=== PATIENT | male | born 2000 | race Hispanic/Latino ===

== ENCOUNTER 2024-08-01 13:03 | Emergency (ER) | payer SELFPAY ==
[2024-08-01 13:08] VITALS: BP 139/77
[2024-08-01 13:23] LABS: % Basophils 0.3 % (0-2); % Eosinophils 1.1 % (0-6); % Immature Granulocytes 0.3 % (0-0.5); % Lymphocytes 19.5 % (20.5-51.1); % Monocytes 6.1 % (1.7-9.3); % Neutrophils 72.7 % (42.2-75.2); Absolute Eosinophils 0.1 10^3/uL (0-0.7); Absolute Lymphocytes 1.3 10^3/uL (1.2-3.4); Absolute Monocytes 0.4 10^3/uL (0.1-0.6); Absolute Neutrophils 4.7 10^3/uL (1.4-6.5); Hematocrit 39.6 % (39.0-52.0); Hemoglobin 13.9 g/dL (13.0-18.0); Mean Corp Hgb Conc. 35.1 g/dL (33.0-37.0); Mean Corpuscular Hgb 29.9 pg (27.0-31.0); Mean Corpuscular Volume 85.2 fL (80.0-94.0); Mean Platelet Volume 9.9 fL (7.4-10.4); Nucleated Red Blood Cells % 0 % (-); Platelet Count 202 10^3/uL (130-400); Red Blood Cell Count 4.65 10^6/uL (4.70-6.10); White Blood Cell Count 6.4 10^3/uL (4.8-10.8)
[2024-08-01 13:40] LABS: ALT (SGPT) 20 U/L (0-50); AST (SGOT) 27 U/L (17-59); Albumin 4.7 g/dl (3.5-5.0); Alkaline Phosphatase 56 U/L (38-126); Blood Urea Nitrogen 17 mg/dl (9-20); Carbon Dioxide 25 mmol/L (22-30); Chloride 108 mmol/L (98-107); Glucose 98 mg/dl (70-99); Potassium 3.8 mmol/L (3.5-5.1); Sodium 140 mmol/L (135-145); Total Bilirubin 0.6 mg/dl (0.2-1.3); Total Protein 7.2 g/dl (6.3-8.2); eGFR > 60.00
[2024-08-01 13:49] LABS: Urine Albumin Negative (Neg - Trace); Urine Bilirubin Negative (Negative); Urine Character Clear (Clear); Urine Color Yellow; Urine Glucose Negative (Negative); Urine Ketone Negative (Negative); Urine Leukocyte Negative (Negative); Urine Nitrite Negative (Negative); Urine Occult Blood Negative (Negative); Urine Urobilinogen Negative (Neg - 1+)
[2024-08-01 13:52] LABS: Troponin I < 0.012 ng/ml
--- NOTE | 2024-08-01 14:11 | ED.GENMED ---
History of Present Illness
General
Chief Complaint: Dizziness
Source: patient
Exam Limitations: none
Time Seen by Provider: 08/01/24 14:02
History of Present Illness
History of Present Illness:
See MDM
Past History
Past History
ED Past Medical History: None
ED Past Surgical History: None
Phy Exam
Physical Exam
Physical Exam:
See MDM
Course
Orders/Labs/Results
Orders:
Orders
08/01/24 13:05
EKG [Electrocardiogram (*1)] Urgent
Reason for Study: Vertigo / Dizzy
EKG- Treatment ONCE
08/01/24 13:18
Complete Blood Count/With Diff Urgent
Comprehensive Metabolic Panel Urgent
Troponin I Urgent
08/01/24 13:41
Urinalysis Reflex To Culture Urgent
Date Specimen was Collected: 08/01/24
Time Specimen was Collected: 13:38
08/01/24 14:11
0.9% Sodium Chloride 1000 ml [Nss] 1,000 ml IV BOLUS
Abnormal Lab Results
08/01/24
13:18
RBC 4.65 L 10^6/uL
(4.70-6.10)
Lymphocytes % 19.5 L %
(20.5-51.1)
Chloride 108 H mmol/L
(98-107)
08/01/24 13:18
08/01/24 13:18
Vital Signs
Initial and Last Documented VS:
Initial Vital Signs
Temp Pulse Resp BP Pulse Ox
98.8 F 64 17 139/77 100
08/01/24 13:08 08/01/24 13:08 08/01/24 13:08 08/01/24 13:08 08/01/24 13:08
Last Documented Vital Signs
Temp Pulse Resp BP Pulse Ox
98.8 F 64 17 139/77 100
08/01/24 13:08 08/01/24 13:08 08/01/24 13:08 08/01/24 13:08 08/01/24 13:08
MDM/Problems Addressed
Differential Diagnosis Includes:
Note:
CHIEF COMPLAINT(S)
Dizziness
HISTORY OF PRESENT ILLNESS
The patient is a 24-year-old male who presented with dizziness. The patient reports that he started feeling dizzy in the morning. He has experienced similar symptoms in the past, characterized by dizziness and headaches. Pt found to have red eyes.
The patient confirmed wearing contact lenses for two years, which may explain the redness in his eyes. He states he is unconcerned about his red eyes and has a prescription for them. There is no significant chest pain; however, the patient feels a
little tension on the side of his heart. So far, his electrocardiogram and blood tests appear normal. The dizziness was described as severe enough to prompt the visit, although the patient is not experiencing any threatening shortness of breath
currently. He also states the chest pain has resolved as well too. He does admit that he did not eat eat or drink a lot earlier today. He states he felt dizzy when he tried to stand up but symptoms have resolved. A neurological examination was
conducted to ensure there were no stroke-like symptoms, which the patient completed successfully.
SOCIAL DETERMINANTS AFFECTING HEALTH
Per patient, it is implied he is employed and potentially requires a work note indicating time off due to his current condition.
PHYSICAL EXAM
General: Well appearing and non-toxic
HEENT: protecting airway. Bilateral injected sclera
Neck: appears supple
CV: No evidence of cyanosis. Regular rate and rhythm
Resp: No accessory muscle use. Lungs clear
Abd: Non-distended
Extremities: No deformities
Neuro: alert. Normal finger-nose bilaterally
Psych: Normal affect
Skin: Hands covered in construction material
PROBLEM LIST
Acute:
- Dizziness
- Redness in eyes
PLAN
- Administer intravenous fluids to see if it alleviates symptoms.
- Continue monitoring while waiting for additional blood test results.
- Provide a work note allowing the patient the option to return to work on or earlier based on his recovery progress.
DIFFERENTIAL DIAGNOSIS
The Differential Diagnosis includes, in no particular order and is not limited to:
- Benign Paroxysmal Positional Vertigo (BPPV)
- Labyrinthitis
- Vestibular Neuritis
- Meniere�s Disease
- Dehydration
- Hypotension
- Cardiovascular causes (e.g., arrhythmia)
- Stroke
- Migraine
- Anxiety-related dizziness
Disposition:
SUMMARY OF ENCOUNTER
The patient presented to the emergency department with symptoms of dizziness and redness in the eyes. A detailed evaluation, including a neurological examination, was conducted to rule out stroke-like symptoms. The patient has a history of dizziness
and headaches, and redness in the eyes was attributed to contact lens use. Intravenous fluids were administered to manage the dizziness. The patients electrocardiogram and blood tests showed no significant abnormalities.
DISPOSITION
Discharge.
ASSESSMENT
The patients dizziness was potentially linked to dehydration or benign conditions, as more severe causes were ruled out based on the examination and tests conducted.
REASSESSMENT
Upon reassessment, the patient reported feeling much better and showed no issues with ambulation.
PLAN
The patient was advised to maintain adequate hydration and follow up with outpatient care as needed. A work note was provided for time off due to the current condition, allowing the patient to return to work based on recovery progress.
INDEPENDENT INTERPRETATION OF TESTS
My independent interpretation of the ECG and blood tests indicated no significant abnormalities, contributing to the decision to manage the patient with hydration and outpatient care.
PATIENT EDUCATION AND COUNSELING
The patient was educated on the importance of staying well-hydrated and advised on the necessity of outpatient follow-up to monitor and manage symptoms.
MEDICATION RECONCILIATION
Intravenous fluids were administered during the visit to alleviate dizziness symptoms.
MEDICAL DECISION MAKING
Number and Complexity of Problems Addressed: The patient presented with acute dizziness and red eyes, and potential serious causes were ruled out through comprehensive examination and tests, supporting a diagnosis related to dehydration or benign
factors.
Data: The ECG and blood tests showed no abnormalities, while an IV fluid administration was indicated and provided.
Risk: The decision for potential discharge was made after reassessment, with consideration of the patients symptomatic improvement and social factors influencing recovery.
To the best of my knowledge and according to current medical standards, the patient was provided with care that meets or exceeds the standard of care for their condition.
*Critical Care Note
Total Time (30-74mins, 75-104mins- exclusive of procedures): Not Applicable
ED Attending Note
-
Portions of this chart may have been created with voice recognition software.� Occasional wrong word or��sound alike� substitutions may have occurred due to the inherent limitations of voice recognition software.
Discharge Plan
Departure
Patient Disposition: Home (Routine Discharge)
Date of Disposition: 08/01/24
Time of Disposition: 15:18
Patient with high blood pressure during this ER visit?: No
Discharge Problem:
Near syncope
Instructions: Near Fainting (DC)
Stand Alone Forms: Return to Work
Activity Restrictions/Additional Instructions:
Please return for any worsening symptoms.
You may return at any time if you have further concerns.
Please follow up with your doctor at the first available appointment, preferably this week.
Thank you for choosing [facility].
Interventions
Interventions:
*Risk Screen - Suicide Last Done: 08/01/24 13:10
*General Assessment Last Done: 08/01/24 13:10
*Neglect/Abuse Screening Last Done: 08/01/24 13:10
*ED COVID-19 Vaccine History Last Done: 08/01/24 13:10
Discharge Date and Time
Print Language: UKRAINIAN
[2024-08-01] MEDS: NSS 1000 IV (14:27)
[2024-08-01 15:50] VITALS: BMI 30.2
== END 2024-08-01 16:01 | disposition home or self-care (01) ==
LOC: EMR 13:03
PROVIDERS: Emergency Medicine; EMERGENCY PHYSICIAN Student in an Organized Health Care Education/Training Program
DX: R55 Syncope and collapse (principal)
CPT/HCPCS: 99283; 80053; 81003; 84484; 85025; 93005